=== PATIENT | female | born 1935 | race Caucasian/White ===

== ENCOUNTER → 2017-02-06 | Outpatient (CLI) | payer OTHER, MEDICAID ==
[2014-05-14 09:35] VITALS: BP 137/60
[2017-02-06 14:29] LABS: BASOPHILS % (AUTO) 0.3 % (0.2-1.0); EOSINOPHILS # (AUTO) 0.2 x10^3/uL (0.0-0.2); EOSINOPHILS % (AUTO) 2.5 % (0.9-2.9); HEMATOCRIT 36.5 % (36.0-47.0); HEMOGLOBIN 12.4 g/dL (12.0-16.0); LYMPHOCYTES # (AUTO) 2.4 X10^3/uL (1.3-2.9); LYMPHOCYTES % (AUTO) 28.3 % (21.0-51.0); MEAN CORPUSCULAR HEMOGLOBIN 28.3 pg (27.0-34.0); MEAN CORPUSCULAR VOLUME 83.2 fL (80.0-100.0); MEAN PLATELET VOLUME 7.8 fL (7.4-11.0); MONOCYTES # (AUTO) 0.8 x10^3/uL (0.3-0.8); MONOCYTES % (AUTO) 9.2 % (0.0-13.0); NEUTROPHILS % (AUTO) 59.7 % (42.0-75.0); PLATELET COUNT 268 X10^3/uL (150.0-450.0); RED BLOOD COUNT 4.38 X10^6/uL (3.5-5.4); RED CELL DISTRIBUTION WIDTH 14.5 % (11.6-16.5); WHITE BLOOD COUNT 8.4 X10^3/uL (3.6-10.0)
[2017-02-06 14:39] LABS: ALANINE AMINOTRANSFERASE 24 Units/L (12-78); ALBUMIN 3.4 g/dL (3.4-5.0); ALKALINE PHOSPHATASE 76 Units/L (46-116); ASPARTATE AMINO TRANSFERASE 16 Units/L (15-37); BLOOD UREA NITROGEN 21 mg/dL (7-18); CALCIUM 8.9 mg/dL (8.5-10.1); CARBON DIOXIDE 32.8 mmol/L (21-32); CHLORIDE 100 mmol/L (98-107); CREATININE 0.89 mg/dL (0.55-1.02); GLUCOSE 108 mg/dL (65-99); SODIUM 135 mmol/L (136-145); TOTAL PROTEIN 7.4 g/dL (6.4-8.2); eGFR BLACK RACES > 60 (>60); eGFR NON BLACK RACES > 60 (>60)
== END ==
LOC: LAB 14:05
PROVIDERS: ATTEND Internal Medicine Gastroenterology
DX: R10.32 Left lower quadrant pain (principal)
CPT/HCPCS: 36415; 80053; 85025

== ENCOUNTER → 2017-02-12 | Outpatient (CLI) | payer OTHER, MEDICAID ==
[2014-05-14 09:35] VITALS: BP 137/60
[~2017-02-12] MED LIST: NS 100 ML IV 100 ML IV ONE
[2017-02-12 08:52] LABS: CREATININE 0.89 mg/dL (0.55-1.02)
--- NOTE | 2017-02-12 10:58 | CT ---
HISTORY: Left lower quadrant abdominal pain Study: CT abdomen pelvis with contrast Comparison: None Technique: Axial post-contrast images with coronal and sagittal reformats. Dose reduction procedures were used with MA/kv adjusted for body size. Findings: The lung bases are clear. The heart is enlarged. The liver, spleen, adrenal glands, and pancreas are within normal limits. No opaque stones are visible within the gallbladder. The kidneys are unobstru cted and without stones or masses. There is a left renal cyst present. No ureteral calculi are ident ified. The appendix is normal. There are no findings suggestive of colitis. There is extensive diver ticulosis of the descending and sigmoid colon. There is no definite evidence for visible diverticuli tis. Evaluation of the sigmoid colon with sigmoidoscopy or colonoscopy may be indicated in order to exclude a mucosal lesion that could be obscured by the degree of diverticular disease present. No pe lvic masses, pelvic fluid, or pelvic lymphadenopathy is identified. No significant bladder abnormali ty is identified. No lytic or blastic skeletal lesions are identified. 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 IMPRESSION: Severe diverticulosis of the distal descending and sigmoid colon without definite evidence for visib le diverticulitis. When symptoms have resolved, evaluation of the sigmoid with sigmoidoscopy or colo noscopy may be indicated in order to exclude a mucosal lesion obscured by the degree of diverticulos is present. Reported By:
== END ==
LOC: RAD 07:54
PROVIDERS: ATTEND Internal Medicine Gastroenterology
DX: R10.32 Left lower quadrant pain (principal); K57.30 Diverticulosis of large intestine without perforation or abscess without bleeding
CPT/HCPCS: 36415; 74177; 82565; 84520; A4222